=== PATIENT | male | born 1995 | race Two or more races ===

== ENCOUNTER 2022-12-02 14:45 | Inpatient (IN) | payer OTHER ==
[2022-12-02 15:24] VITALS: BMI 19.7
[2022-12-02] MEDS ORDERED: ACETAMINOPHEN 325 MG TABLET (FP) PO PRN (16:13)
[2022-12-02] MEDS ORDERED: BENZONATATE 200 MG CAPSULE PO PRN (16:13)
[2022-12-02] MEDS ORDERED: MAG HYDROX/AL HYDROX/SIMETH 30 ML UNIT-DOSE CUP PO PRN (16:13)
[2022-12-02] MEDS ORDERED: NALOXONE HCL 0.4 MG/ML VIAL IM PRN (16:13)
[2022-12-02] MEDS ORDERED: IBUPROFEN 600 MG TABLET (FP) PO PRN (16:13)
[2022-12-02] MEDS ORDERED: guaiFENesin 600 MG TABLET.ER (FP) PO PRN (16:13)
[2022-12-02] MEDS ORDERED: NALOXONE HCL (KLOXXADO) 8 MG SPRAY NS PRN (16:13)
[2022-12-02] MEDS ORDERED: IBUPROFEN 400 MG TABLET (FP) PO PRN (16:13)
[2022-12-02] MEDS ORDERED: ONDANSETRON *ODT* 4 MG TABLET SL PRN (16:13)
[2022-12-02] MEDS ORDERED: MAGNESIUM HYDROX 2400MG/30ML ORAL SUSPENSION 30 ML CUP PO PRN (16:13)
[2022-12-02] MEDS ORDERED: LOPERAMIDE HCL 2 MG CAPSULE PO PRN (16:13)
[2022-12-02] MEDS ORDERED: BISMUTH SUBSALICYLATE 524 MG/30 ML PO PRN (16:13)
[2022-12-02] MEDS ORDERED: NICOTINE 10 MG CARTRIDGE (INHALER) IH PRN (16:13)
[2022-12-02] MEDS ORDERED: BENZOCAINE/MENTHOL (CHLORASEPTIC ) LOZENGE MM PRN (16:13)
[2022-12-02] MEDS ORDERED: DICYCLOMINE HCL 10 MG CAPSULE PO PRN (16:13)
[2022-12-02] MEDS ORDERED: POLYETHYLENE GLYCOL (HEALTHYLAX) 3350 17 GM PACKET PO PRN (16:13)
[2022-12-02] MEDS ORDERED: hydrOXYzine PAMOATE 25 MG CAPSULE (FP) PO PRN (16:13)
[2022-12-02] MEDS: PRENATAL VITAMINS W/ FOLIC ACID TABLET (FP) PO SCH (20:26)
[2022-12-02] MEDS: MELATONIN 5 MG TABLETS PO SCH (22:18)
[2022-12-02] MEDS: THIAMINE HCL 100 MG TABLET (FP) PO SCH (22:18)
[2022-12-02] MEDS: METHOCARBAMOL 500 MG TABLET PO PRN (22:19)
[2022-12-03] MEDS: PRENATAL VITAMINS W/ FOLIC ACID TABLET (FP) PO SCH (10:34)
[2022-12-03] MEDS ORDERED: methaDONE HCL 10 MG TABLET (FOR DETOX USE ONLY) PO ONE ×2 (10:44→13:00)
[2022-12-03] MEDS ORDERED: cloNIDine HCL 0.1 MG TABLET PO PRN (10:44)
[2022-12-03 12:31] LABS: HEMATOCRIT 42.1 % (35.4-49); HEMOGLOBIN 13.5 GM/dL (11.7-16.9); MCH 29.7 pg (25.7-33.7); MCHC 32.1 g/dl (32.0-35.9); MEAN CELL VOLUME 92.4 fl (80-96); MEAN PLT VOLUME 8.7 fl (7.5-11.1); PLATELET COUNT 261 10^3/uL (134-434); RBC 4.56 M/mm3 (4.00-5.60); RDW 12.5 % (11.9-15.9); WHITE BLOOD COUNT 11.6 K/mm3 (4.0-10.0)
[2022-12-03 12:44] LABS: POTASSIUM 3.9 mmol/L (3.5-5.1)
[2022-12-03 12:51] LABS: ALBUMIN 3.7 g/dl (3.4-5.0); CALCIUM 9.4 mg/dL (8.5-10.1)
[2022-12-03 12:52] LABS: BLOOD UREA NITROGEN 17.2 mg/dL (7-18)
[2022-12-03 12:55] LABS: CREATININE 0.9 mg/dL (0.55-1.3)
[2022-12-03 12:56] LABS: BILIRUBIN,TOTAL 0.2 mg/dL (0.2-1); TOT PROT 6.5 g/dl (6.4-8.2)
[2022-12-03 13:38] LABS: HIV INTERPRETATION NEGATIVE (NEGATIVE)
[2022-12-03] MEDS: NICOTINE POLACRILEX 2 MG GUM BUC PRN (14:52)
[2022-12-03] MEDS: METHOCARBAMOL 500 MG TABLET PO PRN (17:10)
[2022-12-03] MEDS: MELATONIN 5 MG TABLETS PO SCH (22:12)
[2022-12-03] MEDS: THIAMINE HCL 100 MG TABLET (FP) PO SCH (22:12)
[2022-12-04] MEDS ORDERED: methaDONE HCL 10 MG TABLET (FOR DETOX USE ONLY) PO ONE (10:00)
[2022-12-04] MEDS: PRENATAL VITAMINS W/ FOLIC ACID TABLET (FP) PO SCH (10:17)
[2022-12-04] MEDS: NICOTINE POLACRILEX 2 MG GUM BUC PRN (12:16)
[2022-12-04] MEDS: MELATONIN 5 MG TABLETS PO SCH (22:18)
[2022-12-04] MEDS: METHOCARBAMOL 500 MG TABLET PO PRN (22:19)
[2022-12-04] MEDS: THIAMINE HCL 100 MG TABLET (FP) PO SCH (22:19)
[2022-12-04] MEDS ORDERED: hydrOXYzine PAMOATE 25 MG CAPSULE (FP) PO PRN (22:22)
[2022-12-05 09:39] VITALS: RESP 18
[2022-12-05] MEDS ORDERED: methaDONE HCL 10 MG TABLET (FOR DETOX USE ONLY) PO ONE (10:00)
[2022-12-05] MEDS: PRENATAL VITAMINS W/ FOLIC ACID TABLET (FP) PO SCH (10:11)
[2022-12-05] MEDS: METHOCARBAMOL 500 MG TABLET PO PRN (10:12)
[2022-12-05 10:33] LABS: HEMATOCRIT 41.8 % (35.4-49); MCH 30.2 pg (25.7-33.7); MCHC 33.6 g/dl (32.0-35.9); MEAN PLT VOLUME 8.1 fl (7.5-11.1); PLATELET COUNT 225 10^3/uL (134-434); RBC 4.64 M/mm3 (4.00-5.60); RDW 12.6 % (11.9-15.9); WHITE BLOOD COUNT 8.5 K/mm3 (4.0-10.0)
[2022-12-05] MEDS: NICOTINE POLACRILEX 2 MG GUM BUC PRN ×3 (11:35→22:17)
[2022-12-05] MEDS: THIAMINE HCL 100 MG TABLET (FP) PO SCH (22:15)
[2022-12-05] MEDS: MELATONIN 5 MG TABLETS PO SCH (22:16)
[2022-12-06] MEDS: METHOCARBAMOL 500 MG TABLET PO PRN (09:02)
[2022-12-06] MEDS: PRENATAL VITAMINS W/ FOLIC ACID TABLET (FP) PO SCH (09:02)
[2022-12-06 09:24] VITALS: BP 103/61; PULSE 67; TEMP 97.3
== END 2022-12-06 10:10 | disposition home or self-care (01) | DRG 773 ==
LOC: EDBD → YASAS 14:45 → Y3N 19:50
PROVIDERS: ADMIT Allergy & Immunology; ATTEND Surgery
PROC: HZ2ZZZZ Detoxification Services for Substance Abuse Treatment (ICD-10-PCS; principal; 2022-12-02)
DX: F11.23 Opioid dependence with withdrawal (principal); F12.20 Cannabis dependence, uncomplicated; F17.210 Nicotine dependence, cigarettes, uncomplicated
CPT/HCPCS: 36415; 80053; 85027; 86780; 87389; 87635; 87811; 93005; 93010

== ENCOUNTER 2023-02-11 12:04 | Inpatient (IN) | payer OTHER ==
[2023-02-11 12:50] VITALS: BMI 20.9
[2023-02-11] MEDS ORDERED: DICYCLOMINE HCL 10 MG CAPSULE PO PRN (14:04)
[2023-02-11] MEDS ORDERED: P-EPHED 60MG/TRIPROLIDI 2.5MG TABLET PO PRN (14:04)
[2023-02-11] MEDS ORDERED: BENZONATATE 200 MG CAPSULE PO PRN (14:04)
[2023-02-11] MEDS ORDERED: guaiFENesin 600 MG TABLET.ER (FP) PO PRN (14:04)
[2023-02-11] MEDS ORDERED: LOPERAMIDE HCL 2 MG CAPSULE PO PRN (14:04)
[2023-02-11] MEDS ORDERED: BENZOCAINE/MENTHOL (CHLORASEPTIC ) LOZENGE MM PRN (14:04)
[2023-02-11] MEDS ORDERED: MAGNESIUM HYDROX 2400MG/30ML ORAL SUSPENSION 30 ML CUP PO PRN (14:04)
[2023-02-11] MEDS ORDERED: BISMUTH SUBSALICYLATE 524 MG/30 ML PO PRN (14:04)
[2023-02-11] MEDS ORDERED: IBUPROFEN 600 MG TABLET (FP) PO PRN (14:04)
[2023-02-11] MEDS ORDERED: NALOXONE HCL (KLOXXADO) 8 MG SPRAY NS PRN (14:04)
[2023-02-11] MEDS ORDERED: IBUPROFEN 400 MG TABLET (FP) PO PRN (14:04)
[2023-02-11] MEDS ORDERED: NALOXONE HCL 0.4 MG/ML VIAL IM PRN (14:04)
[2023-02-11] MEDS ORDERED: MAG HYDROX/AL HYDROX/SIMETH 30 ML UNIT-DOSE CUP PO PRN (14:04)
[2023-02-11] MEDS ORDERED: POLYETHYLENE GLYCOL (HEALTHYLAX) 3350 17 GM PACKET PO PRN (14:04)
[2023-02-11] MEDS ORDERED: ACETAMINOPHEN 325 MG TABLET (FP) PO PRN (14:04)
[2023-02-11] MEDS ORDERED: cloNIDine HCL 0.1 MG TABLET PO PRN (14:05)
[2023-02-11] MEDS ORDERED: methaDONE HCL 10 MG TABLET (FOR DETOX USE ONLY) PO ONE (15:00)
[2023-02-11] MEDS ORDERED: methaDONE HCL 10 MG TABLET (FOR DETOX USE ONLY) ONE (15:38)
[2023-02-11] MEDS: THIAMINE HCL 100 MG TABLET (FP) PO SCH (21:29)
[2023-02-11] MEDS: METHOCARBAMOL 500 MG TABLET PO PRN (21:29)
[2023-02-11] MEDS ORDERED: MELATONIN 5 MG TABLETS PO SCH (22:00)
[2023-02-12] MEDS: PRENATAL VITAMINS W/ FOLIC ACID TABLET (FP) PO SCH (09:22)
[2023-02-12] MEDS ORDERED: methaDONE HCL 10 MG TABLET (FOR DETOX USE ONLY) PO ONE (10:00)
[2023-02-12] MEDS: diazePAM 5 MG TABLET PO PRN ×3 (10:42→19:01)
[2023-02-12 11:47] LABS: HEMATOCRIT 40.1 % (35.4-49); HEMOGLOBIN 13.8 GM/dL (11.7-16.9); MCH 30.2 pg (25.7-33.7); MCHC 34.3 g/dl (32.0-35.9); MEAN PLT VOLUME 8.1 fl (7.5-11.1); PLATELET COUNT 229 10^3/uL (134-434); RBC 4.55 M/mm3 (4.00-5.60); RDW 13.3 % (11.9-15.9); WHITE BLOOD COUNT 8.5 K/mm3 (4.0-10.0)
[2023-02-12 12:00] LABS: POTASSIUM 4.1 mmol/L (3.5-5.1)
[2023-02-12 12:09] LABS: ALBUMIN 4.2 g/dl (3.4-5.0); CALCIUM 8.9 mg/dL (8.5-10.1)
[2023-02-12 12:11] LABS: CREATININE 0.9 mg/dL (0.55-1.3)
[2023-02-12 12:13] LABS: BILIRUBIN,TOTAL 0.5 mg/dL (0.2-1)
[2023-02-12] MEDS: METHOCARBAMOL 500 MG TABLET PO PRN (19:01)
[2023-02-12] MEDS: NICOTINE POLACRILEX 2 MG GUM BUC PRN (21:13)
[2023-02-12] MEDS: MELATONIN 5 MG TABLETS PO SCH (22:52)
[2023-02-12] MEDS: THIAMINE HCL 100 MG TABLET (FP) PO SCH (22:52)
[2023-02-13] MEDS ORDERED: methaDONE HCL 10 MG TABLET (FOR DETOX USE ONLY) PO ONE (10:00)
[2023-02-13] MEDS: PRENATAL VITAMINS W/ FOLIC ACID TABLET (FP) PO SCH (10:20)
[2023-02-13] MEDS: diazePAM 5 MG TABLET PO PRN ×3 (10:24→21:45)
[2023-02-13] MEDS: NICOTINE POLACRILEX 2 MG GUM BUC PRN (13:34)
[2023-02-13] MEDS: THIAMINE HCL 100 MG TABLET (FP) PO SCH (21:45)
[2023-02-13] MEDS: MELATONIN 5 MG TABLETS PO SCH (21:47)
[2023-02-14] MEDS: diazePAM 5 MG TABLET PO PRN (05:38)
[2023-02-14 07:04] VITALS: RESP 18
[2023-02-14 10:38] VITALS: BP 111/66; PULSE 86; TEMP 97.7
[2023-02-14] MEDS: PRENATAL VITAMINS W/ FOLIC ACID TABLET (FP) PO SCH (10:40)
== END 2023-02-14 09:42 | disposition home or self-care (01) | DRG 773 ==
LOC: YASAS 12:04 → Y6N 17:55
PROVIDERS: ADMIT Allergy & Immunology; ATTEND Surgery
PROC: HZ2ZZZZ Detoxification Services for Substance Abuse Treatment (ICD-10-PCS; principal; 2023-02-11)
DX: F11.23 Opioid dependence with withdrawal (principal); F13.20 Sedative, hypnotic or anxiolytic dependence, uncomplicated; F17.290 Nicotine dependence, other tobacco product, uncomplicated; F19.282 Other psychoactive substance dependence with psychoactive substance-induced sleep disorder; F19.24 Other psychoactive substance dependence with psychoactive substance-induced mood disorder
CPT/HCPCS: 36415; 80053; 85027; 86780; 87635; 87811

== ENCOUNTER 2023-08-19 15:28 | Inpatient (IN) | payer OTHER ==
[2023-08-19 16:57] VITALS: BMI 21.9
[2023-08-19] MEDS ORDERED: BENZOCAINE/MENTHOL (CHLORASEPTIC ) LOZENGE MM PRN (18:16)
[2023-08-19] MEDS ORDERED: MAGNESIUM HYDROX 2400MG/30ML ORAL SUSPENSION 30 ML CUP PO PRN (18:16)
[2023-08-19] MEDS ORDERED: IBUPROFEN 600 MG TABLET (FP) PO PRN (18:16)
[2023-08-19] MEDS ORDERED: NALOXONE HCL 0.4 MG/ML VIAL IM PRN (18:16)
[2023-08-19] MEDS ORDERED: NALOXONE HCL (KLOXXADO) 8 MG SPRAY NS PRN (18:16)
[2023-08-19] MEDS ORDERED: ACETAMINOPHEN 325 MG TABLET (FP) PO PRN (18:16)
[2023-08-19] MEDS ORDERED: BENZONATATE 200 MG CAPSULE PO PRN (18:16)
[2023-08-19] MEDS ORDERED: LOPERAMIDE HCL 2 MG CAPSULE PO PRN (18:16)
[2023-08-19] MEDS ORDERED: IBUPROFEN 400 MG TABLET (FP) PO PRN (18:16)
[2023-08-19] MEDS ORDERED: DICYCLOMINE HCL 10 MG CAPSULE PO PRN (18:16)
[2023-08-19] MEDS ORDERED: POLYETHYLENE GLYCOL (HEALTHYLAX) 3350 17 GM PACKET PO PRN (18:16)
[2023-08-19] MEDS ORDERED: BISMUTH SUBSALICYLATE 524 MG/30 ML PO PRN (18:16)
[2023-08-19] MEDS ORDERED: ONDANSETRON *ODT* 4 MG TABLET SL PRN (18:16)
[2023-08-19] MEDS ORDERED: MAG HYDROX/AL HYDROX/SIMETH 30 ML UNIT-DOSE CUP PO PRN (18:16)
[2023-08-19] MEDS: predniSONE 20 MG TABLET (UD) PO SCH (18:48)
[2023-08-19] MEDS: ALBUTEROL SO4 2.5/IPRATROPIUM 0.5 INH SOL 3 ML VIAL.NEB. NEB ONE (19:02)
[2023-08-19] MEDS: METHOCARBAMOL 500 MG TABLET PO PRN (22:13)
[2023-08-19] MEDS: guaiFENesin 600 MG TABLET.ER (FP) PO PRN (22:13)
[2023-08-19] MEDS: hydrOXYzine PAMOATE 25 MG CAPSULE (FP) PO PRN (22:13)
[2023-08-19] MEDS: MELATONIN 5 MG TABLETS PO SCH (22:14)
[2023-08-19] MEDS: diazePAM 5 MG TABLET PO SCH (22:14)
[2023-08-19] MEDS: THIAMINE HCL 100 MG TABLET (FP) PO SCH (22:22)
[2023-08-20] MEDS ORDERED: methaDONE HCL 10 MG TABLET PO SCH (10:00)
[2023-08-20] MEDS: PRENATAL VITAMINS W/ FOLIC ACID TABLET (FP) PO SCH (10:24)
[2023-08-20 12:01] LABS: HEMATOCRIT 36.3 % (35.4-49); HEMOGLOBIN 12.1 GM/dL (11.7-16.9); MCH 29.8 pg (25.7-33.7); MCHC 33.3 g/dl (32.0-35.9); MEAN CELL VOLUME 89.4 fl (80-96); MEAN PLT VOLUME 8.4 fl (7.5-11.1); PLATELET COUNT 234 10^3/uL (134-434); RBC 4.07 M/mm3 (4.00-5.60); RDW 13.9 % (11.9-15.9); WHITE BLOOD COUNT 13.3 K/mm3 (4.0-10.0)
[2023-08-20 12:08] LABS: CHLORIDE 104 mmol/L (98-107); POTASSIUM 4.1 mmol/L (3.5-5.1); SODIUM 140 mmol/L (136-145)
[2023-08-20 12:13] LABS: ANION GAP 10 mmol/L (4-13); BLOOD UREA NITROGEN 12.5 mg/dL (7-18); CALCIUM 8.9 mg/dL (8.5-10.1); CO2 26 mmol/L (21-32)
[2023-08-20 12:14] LABS: GLUCOSE,RANDOM 158 mg/dL (74-106)
[2023-08-20 12:16] LABS: CREATININE 0.7 mg/dL (0.55-1.3); SGPT/ALT 33 U/L (13-61)
[2023-08-20 12:17] LABS: SGOT/AST 18 U/L (15-37)
[2023-08-20 12:18] LABS: BILIRUBIN,TOTAL 0.2 mg/dL (0.2-1); TOT PROT 6.7 g/dl (6.4-8.2)
[2023-08-20 12:19] LABS: ALK PHOS 90 U/L (45-117)
[2023-08-21] MEDS: diazePAM 5 MG TABLET PO SCH (05:22)
[2023-08-21] MEDS: ALBUTEROL SO4 2.5/IPRATROPIUM 0.5 INH SOL 3 ML VIAL.NEB. NEB SCH (10:35)
[2023-08-22] MEDS: diazePAM 5 MG TABLET PO SCH (05:17)
[2023-08-22] MEDS: diazePAM 5 MG TABLET PO PRN (10:43)
[2023-08-23] MEDS: diazePAM 5 MG TABLET PO ONE (05:11)
[2023-08-23 06:07] VITALS: TEMP 97.7
[2023-08-23 13:31] VITALS: BP 111/64; PULSE 81; RESP 18
== END 2023-08-23 15:45 | disposition other institution (70) | DRG 773 ==
LOC: YASAS 15:28 → Y3N 18:23
PROVIDERS: ADMIT Allergy & Immunology; ATTEND Surgery
PROC: HZ2ZZZZ Detoxification Services for Substance Abuse Treatment (ICD-10-PCS; principal; 2023-08-19)
DX: F13.230 Sedative, hypnotic or anxiolytic dependence with withdrawal, uncomplicated (principal); F11.20 Opioid dependence, uncomplicated; F17.210 Nicotine dependence, cigarettes, uncomplicated; F41.9 Anxiety disorder, unspecified; M54.50 Low back pain, unspecified; G89.29 Other chronic pain
CPT/HCPCS: 36415; 71046-TC-FY; 80053; 80307; 85027; 86780; 93005; 93010; 94640

== ENCOUNTER 2023-08-23 15:50 | Inpatient (IN) | payer OTHER ==
[2023-08-23] MEDS ORDERED: LOPERAMIDE HCL 2 MG CAPSULE PO PRN (16:38)
[2023-08-23] MEDS ORDERED: NALOXONE (NYS OPIOID OVERDOSE PROGRAM) 4 MG/0.1 ML SPRAY NS PRN (16:38)
[2023-08-23] MEDS ORDERED: NALOXONE HCL 0.4 MG/ML VIAL IVPUSH PRN (16:38)
[2023-08-23] MEDS ORDERED: MAGNESIUM HYDROX 2400MG/30ML ORAL SUSPENSION 30 ML CUP PO PRN (16:38)
[2023-08-23] MEDS ORDERED: ACETAMINOPHEN 325 MG TABLET (FP) PO PRN (16:38)
[2023-08-23] MEDS ORDERED: POLYETHYLENE GLYCOL (HEALTHYLAX) 3350 17 GM PACKET PO PRN (16:38)
[2023-08-23] MEDS ORDERED: BENZONATATE 200 MG CAPSULE PO PRN (16:38)
[2023-08-23] MEDS ORDERED: IBUPROFEN 600 MG TABLET (FP) PO PRN (16:38)
[2023-08-23] MEDS ORDERED: IBUPROFEN 400 MG TABLET (FP) PO PRN (16:38)
[2023-08-23] MEDS ORDERED: BENZOCAINE/MENTHOL (CHLORASEPTIC ) LOZENGE MM PRN (16:38)
[2023-08-23] MEDS ORDERED: MAG HYDROX/AL HYDROX/SIMETH 30 ML UNIT-DOSE CUP PO PRN (16:38)
[2023-08-23] MEDS: hydrOXYzine PAMOATE 25 MG CAPSULE (FP) PO PRN (17:13)
[2023-08-23] MEDS: METHOCARBAMOL 500 MG TABLET PO PRN (18:28)
[2023-08-23] MEDS: MELATONIN 5 MG TABLETS PO SCH (21:31)
[2023-08-23] MEDS: THIAMINE HCL 100 MG TABLET (FP) PO SCH (21:31)
[2023-08-24] MEDS ORDERED: methaDONE HCL 10 MG TABLET PO SCH (08:30)
[2023-08-24] MEDS: PRENATAL VITAMINS W/ FOLIC ACID TABLET (FP) PO SCH (09:54)
[2023-08-24] MEDS: NICOTINE 14 MG/24 HOURS TOPICAL PATCH TD SCH (14:51)
[2023-08-24] MEDS: GABAPENTIN 300 MG CAPSULE PO SCH (14:51)
[2023-08-24] MEDS: diphenhydrAMINE HCL 50 MG CAPSULE PO SCH (21:27)
[2023-08-24] MEDS ORDERED: diphenhydrAMINE HCL 25 MG CAPSULE (FP) PO ONE (21:27)
[2023-08-25 14:21] LABS: URINE APPEARANCE CLEAR; URINE BILIRUBIN NEGATIVE (NEGATIVE); URINE COLOR YELLOW; URINE GLUCOSE (UA) NEGATIVE (NEGATIVE); URINE KETONE TRACE (NEGATIVE); URINE LEUK ESTERASE NEGATIVE (NEGATIVE); URINE NITRITE NEGATIVE (NEGATIVE); URINE PROTEIN NEGATIVE (NEGATIVE); URINE UROBILINOGEN 0.2 mg/dL (0.2-1.0)
[2023-08-25] MEDS: guaiFENesin 600 MG TABLET.ER (FP) PO PRN (18:54)
[2023-08-25] MEDS ORDERED: P-EPHED 60MG/TRIPROLIDI 2.5MG TABLET PO PRN (19:13)
[2023-08-25] MEDS ORDERED: diphenhydrAMINE HCL 25 MG CAPSULE (FP) PO ONE (20:23)
[2023-08-25] MEDS: SUVOREXANT 10 MG TABLET PO PRN (21:20)
[2023-08-27] MEDS ORDERED: diphenhydrAMINE HCL 25 MG CAPSULE (FP) PO ONE (20:22)
[2023-08-28] MEDS ORDERED: diphenhydrAMINE HCL 25 MG CAPSULE (FP) PO ONE (19:12)
[2023-08-28] MEDS: SUVOREXANT 10 MG TABLET PO PRN (22:02)
[2023-08-29] MEDS ORDERED: diphenhydrAMINE HCL 25 MG CAPSULE (FP) PO ONE (19:16)
[2023-08-30 06:46] VITALS: RESP 18
[2023-08-30] MEDS ORDERED: diphenhydrAMINE HCL 25 MG CAPSULE (FP) PO ONE (20:19)
[2023-08-30] MEDS: METHOCARBAMOL 500 MG TABLET PO PRN (21:27)
[2023-08-31] MEDS ORDERED: diphenhydrAMINE HCL 25 MG CAPSULE (FP) PO ONE (19:27)
[2023-09-01] MEDS ORDERED: diphenhydrAMINE HCL 25 MG CAPSULE (FP) PO ONE (19:43)
[2023-09-02] MEDS: SUVOREXANT 10 MG TABLET PO PRN (21:31)
[2023-09-03] MEDS ORDERED: methaDONE HCL 40 MG DISPERSABLE TABLET PO SCH (13:09)
[2023-09-04] MEDS ORDERED: diphenhydrAMINE HCL 25 MG CAPSULE (FP) PO ONE (20:15)
[2023-09-05] MEDS: SUVOREXANT 10 MG TABLET PO PRN (21:23)
[2023-09-07] MEDS ORDERED: diphenhydrAMINE HCL 25 MG CAPSULE (FP) PO ONE (19:50)
[2023-09-08 05:34] VITALS: BP 117/73; PULSE 64; TEMP 96.4
== END 2023-09-08 09:21 | disposition home or self-care (01) | DRG 772 ==
LOC: YASAS 15:50 → Y5N 15:51
PROVIDERS: ADMIT Allergy & Immunology; ATTEND Psychiatry & Neurology Pain Medicine
PROC: HZ42ZZZ Group Counseling for Substance Abuse Treatment, Cognitive-Behavioral (ICD-10-PCS; principal; 2023-08-23)
DX: F11.20 Opioid dependence, uncomplicated (principal); F13.20 Sedative, hypnotic or anxiolytic dependence, uncomplicated; F17.210 Nicotine dependence, cigarettes, uncomplicated; F19.24 Other psychoactive substance dependence with psychoactive substance-induced mood disorder; F41.8 Other specified anxiety disorders; G47.00 Insomnia, unspecified; D72.829 Elevated white blood cell count, unspecified; M54.50 Low back pain, unspecified; G89.29 Other chronic pain
CPT/HCPCS: 0241U-QW; 81003; 82962

== ENCOUNTER 2023-11-15 12:03 | Inpatient (IN) | payer OTHER ==
[2023-11-15 13:01] VITALS: BMI 25.8
[2023-11-15] MEDS ORDERED: LOPERAMIDE HCL 2 MG CAPSULE PO PRN (13:52)
[2023-11-15] MEDS ORDERED: MAG HYDROX/AL HYDROX/SIMETH 30 ML UNIT-DOSE CUP PO PRN (13:52)
[2023-11-15] MEDS ORDERED: guaiFENesin 600 MG TABLET.ER (FP) PO PRN (13:52)
[2023-11-15] MEDS ORDERED: ACETAMINOPHEN 325 MG TABLET (FP) PO PRN (13:52)
[2023-11-15] MEDS ORDERED: NICOTINE POLACRILEX 2 MG LOZENGE BC PRN (13:52)
[2023-11-15] MEDS ORDERED: BENZONATATE 200 MG CAPSULE PO PRN (13:52)
[2023-11-15] MEDS ORDERED: IBUPROFEN 400 MG TABLET (FP) PO PRN (13:52)
[2023-11-15] MEDS ORDERED: BENZOCAINE/MENTHOL (CHLORASEPTIC ) LOZENGE MM PRN (13:52)
[2023-11-15] MEDS ORDERED: NALOXONE (NARCAN) HCL 4 MG/0.1 ML SPRAY NS PRN (13:52)
[2023-11-15] MEDS ORDERED: POLYETHYLENE GLYCOL (HEALTHYLAX) 3350 17 GM PACKET PO PRN (13:52)
[2023-11-15] MEDS ORDERED: IBUPROFEN 600 MG TABLET (FP) PO PRN (13:52)
[2023-11-15] MEDS ORDERED: MAGNESIUM HYDROX 2400MG/30ML ORAL SUSPENSION 30 ML CUP PO PRN (13:52)
[2023-11-15] MEDS ORDERED: NALOXONE HCL 0.4 MG/ML VIAL IM PRN (13:52)
[2023-11-15] MEDS ORDERED: P-EPHED 60MG/TRIPROLIDI 2.5MG TABLET PO PRN (13:52)
[2023-11-15] MEDS: METHOCARBAMOL 500 MG TABLET PO PRN (18:17)
[2023-11-15 20:25] LABS: PH,URINE 6.5 (5.0-8.0); URINE APPEARANCE CLEAR; URINE BILIRUBIN NEGATIVE (NEGATIVE); URINE COLOR YELLOW; URINE GLUCOSE (UA) NEGATIVE (NEGATIVE); URINE KETONE NEGATIVE (NEGATIVE); URINE LEUK ESTERASE NEGATIVE (NEGATIVE); URINE NITRITE NEGATIVE (NEGATIVE); URINE PROTEIN NEGATIVE (NEGATIVE)
[2023-11-15] MEDS ORDERED: DOCUSATE SODIUM 100 MG CAPSULE (FP) PO PRN (22:00)
[2023-11-15] MEDS: MELATONIN 5 MG TABLETS PO SCH (22:22)
[2023-11-15] MEDS: THIAMINE 100 MG TABLET PO SCH (22:22)
[2023-11-16] MEDS: PRENATAL VITAMINS W/ FOLIC ACID TABLET (FP) PO SCH (09:55)
[2023-11-16] MEDS ORDERED: methaDONE HCL 10 MG TABLET PO SCH (10:45)
[2023-11-16 11:58] LABS: POTASSIUM 4.2 mmol/L (3.5-5.1)
[2023-11-16 11:59] LABS: CALCIUM 8.9 mg/dL (8.5-10.1)
[2023-11-16 12:00] LABS: MCH 29.4 pg (25.7-33.7); MCHC 33.3 g/dl (32.0-35.9); MEAN CELL VOLUME 88.4 fl (80-96); MEAN PLT VOLUME 8.3 fl (7.5-11.1); PLATELET COUNT 212 10^3/uL (134-434); RBC 4.75 M/mm3 (4.00-5.60); RDW 14.3 % (11.9-15.9); WHITE BLOOD COUNT 5.3 K/mm3 (4.0-10.0)
[2023-11-16 12:01] LABS: ALBUMIN 4.1 g/dl (3.4-5.0); BLOOD UREA NITROGEN 16.4 mg/dL (7-18)
[2023-11-16 12:04] LABS: CREATININE 0.8 mg/dL (0.55-1.3)
[2023-11-16 12:06] LABS: BILIRUBIN,TOTAL 0.4 mg/dL (0.2-1); TOT PROT 6.9 g/dl (6.4-8.2)
[2023-11-16 14:09] LABS: SYPHILIS W/ RPR CONF NON-REACTIVE (NONREACTIVE)
[2023-11-16 14:17] LABS: HIV INTERPRETATION NEGATIVE (NEGATIVE)
[2023-11-16] MEDS: SUVOREXANT 10 MG TABLET PO PRN (21:09)
[2023-11-18] MEDS: NICOTINE POLACRILEX 2 MG GUM BUC PRN (10:35)
[2023-11-18] MEDS: hydrOXYzine PAMOATE 25 MG CAPSULE (FP) PO PRN (10:35)
[2023-11-18] MEDS: SUVOREXANT 10 MG TABLET PO PRN (21:11)
[2023-11-20] MEDS: SUVOREXANT 10 MG TABLET PO PRN (21:48)
[2023-11-22] MEDS: hydrOXYzine PAMOATE 25 MG CAPSULE (FP) PO PRN (13:30)
[2023-11-23] MEDS: SUVOREXANT 15 MG TABLET PO PRN (21:16)
[2023-11-29] MEDS: SUVOREXANT 15 MG TABLET PO PRN (21:21)
[2023-11-30] MEDS: PRAZOSIN HCL 1 MG CAPSULE PO SCH (21:21)
[2023-12-02] MEDS: SUVOREXANT 10 MG TABLET PO PRN (21:22)
[2023-12-04] MEDS ORDERED: SUVOREXANT 10 MG TABLET PO PRN (22:00)
[2023-12-05 07:05] VITALS: PULSE 72
[2023-12-06 07:03] VITALS: BP 105/71; RESP 16; TEMP 97.3
[2023-12-06] MEDS ORDERED: SUVOREXANT 10 MG TABLET PO PRN (22:00)
== END 2023-12-06 12:30 | disposition home or self-care (01) | DRG 772 ==
LOC: YASAS 12:03 → Y3NR 17:13 → Y3W 11-16 11:04
PROVIDERS: ADMIT Allergy & Immunology; ATTEND Psychiatry & Neurology Pain Medicine
PROC: HZ42ZZZ Group Counseling for Substance Abuse Treatment, Cognitive-Behavioral (ICD-10-PCS; principal; 2023-11-15)
DX: F11.20 Opioid dependence, uncomplicated (principal); F13.20 Sedative, hypnotic or anxiolytic dependence, uncomplicated; F17.290 Nicotine dependence, other tobacco product, uncomplicated; F19.282 Other psychoactive substance dependence with psychoactive substance-induced sleep disorder; F19.280 Other psychoactive substance dependence with psychoactive substance-induced anxiety disorder; F43.10 Post-traumatic stress disorder, unspecified; F41.9 Anxiety disorder, unspecified; M54.50 Low back pain, unspecified; G89.29 Other chronic pain; Z87.891 Personal history of nicotine dependence
CPT/HCPCS: 36415; 80053; 80305; 80307; 81003; 85027; 86780; 86803; 87389; 87811

== ENCOUNTER 2024-07-17 11:33 | Inpatient (IN) | payer OTHER ==
[2024-07-17 12:06] VITALS: BMI 25.0
[2024-07-17] MEDS ORDERED: ACETAMINOPHEN 325 MG TABLET (FP) PO PRN (12:21)
[2024-07-17] MEDS ORDERED: DICYCLOMINE HCL 10 MG CAPSULE PO PRN (12:21)
[2024-07-17] MEDS ORDERED: NALOXONE (NARCAN) HCL 4 MG/0.1 ML SPRAY NS PRN (12:21)
[2024-07-17] MEDS ORDERED: IBUPROFEN 400 MG TABLET (FP) PO PRN (12:21)
[2024-07-17] MEDS ORDERED: LOPERAMIDE HCL 2 MG CAPSULE PO PRN (12:21)
[2024-07-17] MEDS ORDERED: MAGNESIUM HYDROX 2400MG/30ML ORAL SUSPENSION 30 ML CUP PO PRN (12:21)
[2024-07-17] MEDS ORDERED: NICOTINE POLACRILEX 2 MG GUM BUC PRN (12:21)
[2024-07-17] MEDS ORDERED: IBUPROFEN 600 MG TABLET (FP) PO PRN (12:21)
[2024-07-17] MEDS ORDERED: BENZOCAINE/MENTHOL (CHLORASEPTIC ) LOZENGE MM PRN (12:21)
[2024-07-17] MEDS ORDERED: guaiFENesin 600 MG TABLET.ER (FP) PO PRN (12:21)
[2024-07-17] MEDS ORDERED: BENZONATATE 200 MG CAPSULE PO PRN (12:21)
[2024-07-17] MEDS ORDERED: ONDANSETRON *ODT* 4 MG TABLET SL PRN (12:21)
[2024-07-17] MEDS ORDERED: POLYETHYLENE GLYCOL (HEALTHYLAX) 3350 17 GM PACKET PO PRN (12:21)
[2024-07-17] MEDS ORDERED: BISMUTH SUBSALICYLATE 262 MG/15 ML BTL PO PRN (12:21)
[2024-07-17] MEDS ORDERED: MAG HYDROX/AL HYDROX/SIMETH 30 ML UNIT-DOSE CUP PO PRN (12:21)
[2024-07-17] MEDS: hydrOXYzine PAMOATE 25 MG CAPSULE (FP) PO PRN (17:09)
[2024-07-17] MEDS: METHOCARBAMOL 500 MG TABLET PO PRN (22:02)
[2024-07-17] MEDS: levETIRAcetam 500 MG TABLET (FP) PO SCH (22:02)
[2024-07-17] MEDS: MELATONIN 5 MG TABLETS PO SCH (22:02)
[2024-07-17] MEDS: THIAMINE 100 MG TABLET PO SCH (22:02)
[2024-07-18] MEDS ORDERED: methaDONE HCL 10 MG TABLET PO ONE (09:29)
[2024-07-18] MEDS ORDERED: cloNIDine HCL 0.1 MG TABLET PO PRN (10:07)
[2024-07-18] MEDS: PRENATAL VITAMINS W/ FOLIC ACID TABLET (FP) PO SCH (10:09)
[2024-07-18] MEDS: methaDONE 200 MG, methaDONE 30 MG, methaDONE 5 MG PO ONE (10:11)
[2024-07-18 11:06] LABS: HEMATOCRIT 41.8 % (35.4-49); HEMOGLOBIN 13.5 GM/dL (11.7-16.9); MCH 29.2 pg (25.7-33.7); MCHC 32.4 g/dl (32.0-35.9); MEAN CELL VOLUME 90.1 fl (80-96); MEAN PLT VOLUME 8.5 fl (7.5-11.1); PLATELET COUNT 255 10^3/uL (134-434); RBC 4.64 M/mm3 (4.00-5.60); WHITE BLOOD COUNT 8.3 K/mm3 (4.0-10.0)
[2024-07-18 11:47] LABS: ALBUMIN 3.8 g/dl (3.4-5.0); BLOOD UREA NITROGEN 26.1 mg/dL (7-18); CALCIUM 9.2 mg/dL (8.5-10.1)
[2024-07-18 11:48] LABS: CREATININE 0.9 mg/dL (0.55-1.3)
[2024-07-18 11:51] LABS: TOT PROT 6.8 g/dl (6.4-8.2)
[2024-07-18 11:55] LABS: BILIRUBIN,TOTAL 0.2 mg/dL (0.2-1)
[2024-07-18] MEDS: diazePAM 5 MG TABLET PO PRN (13:59)
[2024-07-18] MEDS: GABAPENTIN 300 MG CAPSULE PO SCH (13:59)
[2024-07-19] MEDS: methaDONE 200 MG, methaDONE 30 MG, methaDONE 5 MG PO SCH (05:40)
[2024-07-19] MEDS ORDERED: methaDONE HCL 10 MG TABLET PO SCH (06:00)
[2024-07-19 08:56] VITALS: BP 104/69; PULSE 60; RESP 16; TEMP 97.5
== END 2024-07-19 11:20 | disposition other institution (70) | DRG 773 ==
LOC: YASAS 11:33 → Y6N 14:34
PROVIDERS: ADMIT Allergy & Immunology; ATTEND Allergy & Immunology
PROC: HZ2ZZZZ Detoxification Services for Substance Abuse Treatment (ICD-10-PCS; principal; 2024-07-17)
DX: F13.20 Sedative, hypnotic or anxiolytic dependence, uncomplicated (principal); F11.20 Opioid dependence, uncomplicated; F17.290 Nicotine dependence, other tobacco product, uncomplicated; F19.282 Other psychoactive substance dependence with psychoactive substance-induced sleep disorder; F19.280 Other psychoactive substance dependence with psychoactive substance-induced anxiety disorder; F19.24 Other psychoactive substance dependence with psychoactive substance-induced mood disorder; G40.509 Epileptic seizures related to external causes, not intractable, without status epilepticus; M15.9 Polyosteoarthritis, unspecified; M54.41 Lumbago with sciatica, right side; M54.42 Lumbago with sciatica, left side; G89.29 Other chronic pain
CPT/HCPCS: 36415; 80053; 80305; 80307; 85027; 86780; 93005; 93010